=== PATIENT | male | born 1955 | race Asian ===

== ENCOUNTER 2024-03-18 14:53 | Outpatient (CLI) | payer MEDICARE, OTHER, SELFPAY ==
--- NOTE | ~2024-03-18 | XR_ITS ---
XR knee RT min 4V Ordering provider: QIAN Chapin History: . M25.561 - Pain in right knee . Comparison: None. FINDINGS: BONES: No acute fracture or dislocation. JOINT SPACES: Normal.. SOFT TISSUES: Normal. IMPRESSION: No acute osseous abnormality right knee. Reviewed, dictated and finalized at location A.
== END 2024-03-18 14:54 | disposition home or self-care (01) ==
PROVIDERS: PCP Family Medicine; Visit Provider Nurse Practitioner Family
DX: M25.561 Pain in right knee (principal)
CPT/HCPCS: 73564

== ENCOUNTER 2024-05-05 14:22 | Outpatient (CLI) | payer MEDICARE, OTHER, SELFPAY ==
--- NOTE | ~2024-05-05 | MR_ITS ---
EXAMINATION: MR knee RT wo con DATE: 05/05/2024 15:00 INDICATION: Right knee pain TECHNIQUE: Magnetic resonance imaging (MRI) of the right knee was performed without intravenous contr ast. Sequences included coronal PD-weighted FSE, coronal PD-weighted FS FSE, sagittal T2-weighted FS E, sagittal PD-weighted FS FSE and axial PD weighted fat saturated FSE. COMPARISON: None. FINDINGS: Medial compartment: Extensive complex tear involving the body and posterior horn of the medial meniscus. There is chondra l ulceration involving greater than 50% the cartilage thickness and with chondral surface regularity but without degenerative subchondral changes along the anterior central weightbearing medial femoral condyle. There is additional partial thickness cartilage loss both smooth chondral surface along the central to anterior medial tibial plateau. Lateral compartment: Lateral meniscus is normal. Articular cartilage is normal. Patellofemoral compartment: Articular cartilage is normal. Ligaments and tendons: Anterior and posterior cruciate ligaments are normal. The medial collateral ligament and fibular luiz ateral ligament complex are normal. The extensor mechanism is normal. The visualized medial and later al hamstring tendons as well as the iliotibial band are normal. Fluid: Moderate-sized knee joint effusion. No loose osteochondral bodies identified. Osseous/other: Normal marrow signal. No fracture or pathologic marrow replacing process. IMPRESSION: 1. Complex medial meniscal tear. 2. 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 3. Moderate-sized right knee joint effusion. Reviewed, dictated and finalized at location B. IMPRESSION: 1. Complex medial meniscal tear. 2. Mild osteoarthritis with extensive moderate grade chondromalacia in the medi al compartment. 3. Moderate-sized right knee joint effusion.
== END 2024-05-05 14:23 | disposition home or self-care (01) ==
LOC: GOSHIMG 14:22
PROVIDERS: PCP Family Medicine; Visit Provider Nurse Practitioner Family
DX: S83.231A Complex tear of medial meniscus, current injury, right knee, initial encounter (principal); M17.11 Unilateral primary osteoarthritis, right knee; M94.261 Chondromalacia, right knee; M25.461 Effusion, right knee; X58.XXXA Exposure to other specified factors, initial encounter
CPT/HCPCS: 73721

== ENCOUNTER 2024-08-13 14:30 | Emergency (ER) | payer MEDICARE, OTHER, SELFPAY ==
[2024-08-13] VITALS (8 sets, daily range): BP systolic 142–162; BP diastolic 75–86; PULSE 118–148; RESP 11–25; TEMP 36.4; O2SAT 92–96
--- NOTE | ~2024-08-13 | CT_ITS ---
EXAMINATION: CTA chest PE protocol DATE: 08/13/2024 18:01 INDICATION: Shortness of breath. TECHNIQUE: Computed tomography angiography (CTA) of the chest was performed with 100 mL Omnipaque-350 intravenous contrast timed to evaluate the pulmonary arteries. Coronal maximum intensity projection 3D-reconstructions were created by the technologist. Automated exposure control and iterative reconst ruction technique were employed. The dose-length product was 314.07 mGy-cm. COMPARISON: None. FINDINGS: The lungs demonstrate mild atelectasis. No pleural effusion. The heart size is normal. Ther e are coronary artery calcifications. No pericardial effusion. There is no pulmonary embolus. There i s moderate cervical spondylosis and mild thoracic spondylosis. IMPRESSION: 1. No pulmonary embolus. Reviewed, dictated and finalized at location A. OYMENT COACH IMPRESSION: 1. No pulmonary embolus.
--- NOTE | ~2024-08-13 | XR_ITS ---
XR chest 2V Ordering provider: Michele Rivas MD History: 68 years Male with . sob . Comparison: None. FINDINGS: MEDIASTINUM: The cardiac silhouette is not enlarged. Congestive franky. LUNGS: No effusions or pneumothorax. Opacification in the left lower lobe medially. Underlying emphysematous changes. OTHER: No free air under the diaphragm. IMPRESSION: Left lower lobe atelectasis versus pneumonia. Reviewed, dictated and finalized at location A. AL DIRECTOR
--- NOTE | 2024-08-13 14:36 | ECG_ITS ---
Test Date: 2024-08-13 14:41:53 Measurements Intervals [place] Rate: 142 P: 56 MA: 144 QRS: 68 QRSD: 78 T: 44 QT: 289 QTc: 444 Interpretive Statements SINUS TACHYCARDIA, POSSIBLE ATRIAL FLUTTER ABNORMAL RHYTHM ECG No previous ECG available for comparison Electronically Signed On 08-13-2024 14:51:30 MEDIUM CYCLE SALESPERSON by Carlos Caruso M.D.
[2024-08-13 16:08] LABS: Basophils Absolute Auto 0.1 K/mm3 (0.0-0.1); Basophils Percent Auto 0.9 % (0.2-1.2); Eosinophils Absolute Auto 0.1 K/mm3 (0-0.3); Hematocrit 37.7 % (42.0-52.0); Hemoglobin 12.8 g/dL (14.0-18.0); Immature Granulocyte Absolute 0.01 K/mm3 (0.00-0.031); Immature Granulocyte Percent A 0.2 % (0-0.5); Lymphocytes Absolute Auto 0.67 K/mm3 (0.9-3.2); Lymphocytes Percent Auto 12.1 % (18.3-44.2); Mean Corpuscular Hemoglobin 29.3 pg (26-34); Mean Corpuscular Volume 86.3 fl (80-100); Mean Platelet Volume 9.1 fl (7.4-10.4); Monocytes Absolute Auto 0.6 K/mm3 (0.1-0.6); Neutrophils Absolute Auto 4.1 K/mm3 (1.3-6.7); Neutrophils Percent Auto 73.8 % (45.5-73.1); Platelet Count Result 245 k/mm3 (150-375); Red Blood Count 4.37 M/mm3 (4.6-6.20); Red Cell Distribution Width 11.9 % (11.5-14.5); White Blood Count 5.6 K/mm3 (4.5-10.0)
[2024-08-13 16:20] LABS: Alanine Aminotransferase 66 U/L (6-50); Albumin Level 3.7 g/dL (3.5-5.1); Alkaline Phosphatase 90 U/L (38-126); Anion Gap 4 mmol/L (4-12); Aspartate Amino Transferase 50 U/L (17-59); Bilirubin,Total 1.2 mg/dL (0.2-1.3); Blood Urea Nitrogen 18 mg/dL (9-20); Calcium 8.8 mg/dL (8.4-10.2); Carbon Dioxide 27 mmol/L (22-30); Chloride 101 mmol/L (98-107); Estimated Glomerular Filt Rate > 60; Glucose 184 mg/dL (65-110); Potassium 3.7 mmol/L (3.4-5.0); Sodium 132 mmol/L (137-145)
[2024-08-13 16:25] LABS: INR 1.2; Prothrombin Time 15.2 Seconds (11.1-14.7)
[2024-08-13 16:30] LABS: NT Pro B Type Natriuretic Pept 79 pg/mL (19.9-100); Troponin I < 0.012 ng/mL (0.000-0.034)
[2024-08-13 16:57] LABS: D Dimer 2.26 ug/mL (<0.48)
--- NOTE | 2024-08-13 18:14 | ED.GENADULT ---
HPI - General Adult General Chief complaint: Upper Respiratory Infection Stated complaint: productive cough, fever, body aches x3 weeks Time Seen by Provider: 08/13/24 14:43 Source: patient and family Mode of arrival: ambulatory Limitations: no limitations History of Present Illness HPI narrative: 68-year-old with a history of hypertension, BPH here with the complaints of cold, cough congestion for past few days. Patient states that it beginning of the month he was diagnosed with COVID on Aug 01 which was positive and retested again on aug 05 was neg , has been having cough and wheezing on and off since then , he had fever earlier . Denies any chest pain Onset (ago): week(s) (2) Severity: moderate Exacerbating factors: none Associated symptoms: cough and fever/chills Treatments prior to arrival: none Related Data Home Medications ?Medication ?Instructions ?Recorded ?Confirmed ?Last Taken ?Type omega 9-cqs-ppg-fish oil 1,000 mg 1 cap PO DAILY 07/26/23 08/13/24 Unknown History (120 mg-180 mg) capsule (Fish Oil) Allergies Allergy/AdvReac Type Severity Reaction Status Date / Time MARE Inhibitors Allergy Intermediate Cough Verified 08/13/24 14:44 Review of Systems Review of Systems: All systems reviewed & are unremarkable except as noted in HPI and below Constitutional: Constitutional: Reports no additional constitutional complaints Eyes: Eyes: Reports no additional eye complaints ENT: Reports system reviewed and no additional complaints, except as documented Cardiovascular: Cardiovascular: Reports no additional cardiovascular complaints Respiratory: Respiratory: Reports as per HPI Gastrointestinal: Gastrointestinal: Reports no additional gastrointestinal complaints Musculoskeletal: Musculoskeletal: Reports no additional musculoskeletal complaints Neurologic: Reports system reviewed and no additional complaints, except as documented [facility] Past Medical History Medical History Abnormal tympanic membrane of both ears Bilateral tinnitus Encounter for wellness examination Right shoulder pain Screening for prostate cancer Screening, lipid Strep throat Tendonitis Tinea corporis Family History Family History Father Hypertension Family history of diabetes mellitus in first degree relative Family history of heart disease in male family member before age 55 Diabetes mellitus Mother Hypertension Cancer of lung Sibling Cerebrovascular accident Social History Social History Social History: Caffeine-coffee Smoking status: Never smoker Second hand tobacco smoke exposure: Yes Alcohol intake: never Substance use: never Substance use type: does not use Lack of Transportation: No Lack of Food: Never True Current Housing: I Have Housing Concerned About Future Housing: No Difficulty Paying Gas/Electric Bills: No Difficulty Paying for Meds: No Currently Unemployed: No Education: Master's Degree or Higher Difficulty w/ Childcare or Family Care: No Living arrangements: with family Occupation/Education: retired Additional occupation/education comments: compliance intern Gender identity (if verbalized by the patient): Male Exam Narrative: GENERAL: Well-appearing, well-nourished, and in no acute distress. HEAD: Normocephalic, atraumatic. EYES: PERRLA and EOMI. ENT: Nares clear, no rhinorrhea or epistaxis. Mucous membranes moist. NECK: Supple. CHEST: Clear to auscultation. No respiratory distress. HEART: Regular rate and rhythm. No murmur heard. Normal peripheral pulses. ABDOMEN: Soft, nontender, nondistended, normal active bowel sounds. EXTREMITIES: Normal range of motion. No edema. SKIN: Warm, dry, no rash. NEURO: No focal deficits. Alert and oriented x3. PSYCH: Normal mood and affect. Course Course Emergency Course: Patient had elevated D-dimer of 2.26, did a CT of the chest showed evidence of PE , I did inform lab work and the x-ray findings to him. He is requesting cough medicine with codeine. No indication of antibiotic at this time it appears to be post COVID sequelae Vital Signs Vital signs: Vital Signs Temperature 36.4 C 08/13/24 14:34 Pulse Rate 148 H 08/13/24 14:34 Respiratory Rate 22 H 08/13/24 14:34 Blood Pressure 151/76 H 08/13/24 14:34 Pulse Oximetry 96 08/13/24 14:34 Temperature 36.4 C 08/13/24 14:34 Pulse Rate 118 H 08/13/24 16:31 Respiratory Rate 14 08/13/24 16:31 Blood Pressure 142/77 H 08/13/24 16:31 Pulse Oximetry 92 08/13/24 16:31 Oxygen Delivery Room Air 08/13/24 14:48 Medical Decision Making Differential Diagnosis Differential Diagnosis: Bronchitis, asthma, pneumonia, PE, CHF Medical Records Medical records reviewed: Yes I reviewed the external patient's medical records. Vital Signs Vital Signs: Vital Signs Temperature 36.4 C 08/13/24 14:34 Pulse Rate 148 H 08/13/24 14:34 Respiratory Rate 22 H 08/13/24 14:34 Blood Pressure 151/76 H 08/13/24 14:34 Pulse Oximetry 96 08/13/24 14:34 Temperature 36.4 C 08/13/24 14:34 Pulse Rate 118 H 08/13/24 16:31 Respiratory Rate 14 08/13/24 16:31 Blood Pressure 142/77 H 08/13/24 16:31 Pulse Oximetry 92 08/13/24 16:31 Oxygen Delivery Room Air 08/13/24 14:48 Lab Data Lab results reviewed: Yes I reviewed the patient's lab results. 08/13/24 15:58 08/13/24 15:58 Labs: Lab Results 08/13/24 Range/Units 15:58 WBC 5.6 (4.5-10.0) K/mm3 RBC 4.37 L (4.6-6.20) M/mm3 Hgb 12.8 L (14.0-18.0) g/dL Hct 37.7 L (42.0-52.0) % MCV 86.3 (80-100) fl MCH 29.3 (26-34) pg MCHC 34.0 (32-36) g/dl RDW 11.9 (11.5-14.5) % Plt Count 245 (150-375) k/mm3 MPV 9.1 (7.4-10.4) fl Immature Gran % (Auto) 0.2 (0-0.5) % Neut % (Auto) 73.8 H (45.5-73.1) % Lymph % (Auto) 12.1 L (18.3-44.2) % Delta % (Auto) 11.0 H (2.6-8.5) % Eos % (Auto) 2.0 (0-4.4) % Baso % (Auto) 0.9 (0.2-1.2) % Lymph # (Auto) 0.67 L (0.9-3.2) K/mm3 Delta # (Auto) 0.6 (0.1-0.6) K/mm3 Eos # (Auto) 0.1 (0-0.3) K/mm3 Baso # (Auto) 0.1 (0.0-0.1) K/mm3 Abs Immat Gran (auto) 0.01 (0.00-0.031) K/mm3 Absolute Neuts (auto) 4.1 (1.3-6.7) K/mm3 Absolute Nucleated RBC 0.000 (0.0-0.012) K/mm3 Nucleated RBC % 0.0 (0.0-0.2) % PT 15.2 H (11.1-14.7) Seconds INR 1.2 D-Dimer 2.26 H (<0.48) ug/mL Sodium 132 L (137-145) mmol/L Potassium 3.7 (3.4-5.0) mmol/L Chloride 101 (98-107) mmol/L Carbon Dioxide 27 (22-30) mmol/L Anion Gap 4 (4-12) mmol/L BUN 18 (9-20) mg/dL Creatinine 1.00 (0.7-1.3) mg/dL Estim Creat Clear Calc Not Reportable Estimated GFR > 60 (59 - ) Glucose 184 H (65-110) mg/dL Calcium 8.8 (8.4-10.2) mg/dL Total Bilirubin 1.2 (0.2-1.3) mg/dL AST 50 (17-59) U/L ALT 66 H (6-50) U/L Alkaline Phosphatase 90 (38-126) U/L Troponin I < 0.012 (0.000-0.034) ng/mL NT-Pro-B Natriuret Pep 79 (19.9-100) pg/mL Total Protein 7.0 (6.3-8.2) g/dL Albumin 3.7 (3.5-5.1) g/dL Imaging Data Radiologist's impression: ITS Impressions Chest X-Ray 08/13/24 15:37 IMPRESSION: Left lower lobe atelectasis versus pneumonia. Chest CTA 08/13/24 18:09 IMPRESSION: 1. No pulmonary embolus. ECG Data EKG #1: ECG completion date: 08/13/24 ECG completion time: 14:41 EKG Interpretation: tachycardia (142), no ST changes, normal QRS and NL axis Discharge Plan Discharge Clinical Impression: Acute bronchitis Qualifiers: Bronchitis organism: unspecified organism Qualified Code(s): J20.9 - Acute bronchitis, unspecified Patient Disposition: Home, Self-Care Condition: Stable Instructions: Antibiotic Form, Acute Bronchitis (ED) Patient Language: Swedish Prescriptions: New codeine-guaifenesin 7.5-225 mg/5 mL liquid 7.5 ml PO Q4-6H PRN (Reason: cough) Qty: 473 0RF No Action omega 8-jnw-tpv-fish oil [Fish Oil] 1,000 mg (120 mg-180 mg) capsule 1 cap PO DAILY amlodipine 10 mg tablet 10 mg PO DAILY Qty: 30 11RF triamcinolone acetonide 0.5 % cream 1 applic topical BID Qty: 30 0RF albuterol sulfate 90 mcg/actuation HFA aerosol inhaler 1 inh INHALATION Q4H Qty: 8.5 0RF finasteride 1 mg tablet 1 mg PO DAILY Qty: 90 3RF azithromycin [Zithromax] 250 mg tablet See Rx Instructions PO .COMPLEX Qty: 6 0RF Rx Instructions: take 500 mg today (day 1), then 250 mg for 4 days (days 2-5) PO benzonatate 100 mg capsule 100 mg PO TID PRN (Reason: cough) Qty: 30 0RF Follow-up/Referrals: Darron Sarah MD [Primary Care Provider] - Time of Disposition: 18:28
== END 2024-08-13 19:03 | disposition home or self-care (01) ==
PROVIDERS: Emergency Provider Family Medicine; PCP Family Medicine
DX: J20.9 Acute bronchitis, unspecified (principal); R06.2 Wheezing; I10 Essential (primary) hypertension; N40.0 Benign prostatic hyperplasia without lower urinary tract symptoms; Z86.16 Personal history of COVID-19; R94.31 Abnormal electrocardiogram [ECG] [EKG]; R00.0 Tachycardia, unspecified; R91.8 Other nonspecific abnormal finding of lung field
CPT/HCPCS: 36415; 71046; 71275; 80053; 83880; 84484; 85025; 85380; 85610; 93005; 99284; Q9967

== ENCOUNTER 2025-08-21 07:37 | Emergency (ER) | payer MEDICARE, OTHER, SELFPAY ==
--- NOTE | ~2025-08-21 | US_ITS ---
EXAMINATION: US venous doppler [facility] DATE: 08/21/2025 09:04 INDICATION: Left lower limb pain TECHNIQUE: Grayscale ultrasound images without and with compression and Doppler ultrasound images of the left lower extremity veins were obtained. COMPARISON: None. FINDINGS: The visualized portions of left common femoral vein, profunda (deep) femoral vein, femoral vein, popliteal vein, peroneal veins, posterior tibial veins, gastrocnemius vein and greater saphenous vein outflow are patent. IMPRESSION: 1. No deep venous thrombosis in the left lower limb. Reviewed, dictated and finalized at location A. MODYNAMICS TEACHER
--- NOTE | ~2025-08-21 | XR_ITS ---
EXAMINATION: XR knee LT 3V DATE: 08/21/2025 09:38 INDICATION: Left knee pain TECHNIQUE: Anteroposterior, oblique and crosstable lateral views of the left knee were obtained COMPARISON: None. FINDINGS: Alignment is normal. No fracture. Joint spaces appear normal on nonweightbearing imaging. Small enthesophyte at the proximal pole of the patella. No joint effusion/layering lipohemarthrosis. Soft tissues are unremarkable. IMPRESSION: 1. No left knee joint effusion or acute osseous abnormality. Reviewed, dictated and finalized at location A. UTER SCIENCE INSTRUCTOR
[2025-08-21 07:59] VITALS: BP 134/66; PULSE 78; RESP 16; TEMP 36.5; O2SAT 97
--- NOTE | 2025-08-21 08:03 | ED.GENADULT ---
HPI - General Adult General Chief complaint: Extremity Problem,Nontraumatic Stated complaint: LLE nwb Time Seen by Provider: 08/21/25 07:54 History of Present Illness HPI narrative: Patient is a 6-year-old male who presents ER with pain to left lower extremity. [place] a little discomfort last weekend while he was walking but on 08/19/2025 he started noticing increased pain behind the left knee. Is progress the point where he cannot bear weight without significant pain today. No swelling or numbness or tingling. No known injury no trauma to the knee. No increased work with/he to be in. No improvement with Aleve. Related Data Home Medications ?Medication ?Instructions ?Recorded ?Confirmed ?Last Taken ?Type omega 8-qvv-sgj-fish oil 1,000 mg 1 cap PO DAILY 07/26/23 07/07/25 Unknown History (120 mg-180 mg) capsule (Fish Oil) amlodipine 5 mg-olmesartan 20 mg 1 tablet PO DAILY 07/07/25 07/07/25 Unknown History tablet Allergies Allergy/AdvReac Type Severity Reaction Status Date / Time MARE Inhibitors Allergy Intermediate Cough Verified 08/21/25 08:12 Review of Systems Review of Systems: All systems reviewed & are unremarkable except as noted in HPI and below Constitutional: Constitutional: Reports no additional constitutional complaints Cardiovascular: Cardiovascular: Reports no additional cardiovascular complaints Respiratory: Respiratory: Reports no additional respiratory complaints Musculoskeletal: Musculoskeletal: Reports no additional musculoskeletal complaints Neurologic: Reports system reviewed and no additional complaints, except as documented PMF Past Medical History Medical History Abnormal tympanic membrane of both ears Bilateral tinnitus Encounter for wellness examination Tinea corporis Right shoulder pain Tendonitis Screening, lipid Screening for prostate cancer Strep throat Family History Family History Father Hypertension Family history of diabetes mellitus in first degree relative Family history of heart disease in male family member before age 55 Diabetes mellitus Mother Hypertension Cancer of lung Sibling Cerebrovascular accident Social History Social History Social History: Caffeine-coffee Smoking status: Never smoker Second hand tobacco smoke exposure: Yes Alcohol intake: never Substance use: never Substance use type: does not use Lack of Transportation: No Lack of Food: Never True Current Housing: I Have Housing Concerned About Future Housing: No Difficulty Paying Gas/Electric Bills: No Difficulty Paying for Meds: No Currently Unemployed: No Education: Master's Degree or Higher Difficulty w/ Childcare or Family Care: No Living arrangements: with family Occupation/Education: retired Additional occupation/education comments: animal biologist Gender identity (if verbalized by the patient): Male Exam Narrative: GENERAL: Well-appearing, well-nourished, and in no acute distress. HEAD: Normocephalic, atraumatic. ENT: Mucous membranes moist. CHEST: Clear to auscultation. No respiratory distress. HEART: Regular rate and rhythm. Normal peripheral pulses. EXTREMITIES: Normal range of motion but with pain at the knee in the LLE. No point tenderness to the left knee. Positive apley grind test left knee. No edema. SKIN: Warm, dry, no rash. NEURO: Alert and oriented x3. PSYCH: Normal mood and affect. Course Course Emergency Course: Possible meniscus injury. Negative venous Doppler ultrasound and x-ray. Patient placed in knee immobilizer and given crutches. Recommend anti-inflammatories as well as Tylenol with hydrocodone for breakthrough pain. Follow up with Orthopedic surgery. Vital Signs Vital signs: Vital Signs Temperature 97.7 F 08/21/25 07:59 Pulse Rate 78 08/21/25 07:59 Respiratory Rate 16 08/21/25 07:59 Blood Pressure 134/66 08/21/25 07:59 Pulse Oximetry 97 08/21/25 07:59 Oxygen Delivery Room Air 08/21/25 07:59 Temperature 97.7 F 08/21/25 07:59 Pulse Rate 78 08/21/25 07:59 Respiratory Rate 16 08/21/25 07:59 Blood Pressure 134/66 08/21/25 07:59 Pulse Oximetry 97 08/21/25 07:59 Oxygen Delivery Room Air 08/21/25 07:59 MDM Differential Diagnosis Differential Diagnosis: DVT, Mendoza cyst, arthritis, meniscus injury, ligamentous injury, gout, septic joint Imaging Data Radiologist's impression: ITS Impressions Venous Doppler Study 08/21/25 09:06 IMPRESSION: 1. No deep venous thrombosis in the left lower limb. Knee X-Ray 08/21/25 09:45 IMPRESSION: 1. No left knee joint effusion or acute osseous abnormality. Discharge Plan Discharge Clinical Impression: Knee pain Patient Disposition: Home Condition: Stable Instructions: Knee Pain (ED), Knee Immobilizer (ED), Meniscus Tear (ED) Additional Instructions: It is possible that you have a torn meniscus. Wear your knee immobilizer and bear weight as tolerated with crutches. Take naproxen or ibuprofen as needed at home. Take Tylenol with hydrocodone for breakthrough pain. Follow-up with orthopedic surgery for further treatment and evaluation. Return the ER if you have chest pain and shortness of breath, your leg is cold and blue, or you have additional concerns. Patient Language: Estonian Prescriptions: New hydrocodone-acetaminophen 5-325 mg tablet 1 tablet PO Q6H PRN (Reason: pain) Qty: 10 0RF No Action omega 4-dml-hvf-fish oil [Fish Oil] 1,000 mg (120 mg-180 mg) capsule 1 cap PO DAILY triamcinolone acetonide 0.5 % cream 1 applic topical BID Qty: 30 0RF amlodipine-olmesartan 5-20 mg tablet 1 tablet PO DAILY finasteride 1 mg tablet 1 mg PO DAILY Qty: 90 3RF albuterol sulfate 90 mcg/actuation HFA aerosol inhaler 1 inh INHALATION Q4H Qty: 8.5 0RF Follow-up/Referrals: Darron Sarah MD [Primary Care Provider, Family Practice] - 1 Week Freddy Young MD [Physician, Orthopedics] - 1 Week
[2025-08-21] MEDS: HYDROcodone/acetaminophen (*CRX) 5-325 MG TABLET 1 TAB PO (08:13)
[2025-08-21 11:01] VITALS: BP 137/69; PULSE 81; RESP 18; O2SAT 97
== END 2025-08-21 11:34 | disposition home or self-care (01) ==
PROVIDERS: Emergency Provider Emergency Medicine; PCP Family Medicine
DX: M25.562 Pain in left knee (principal)
CPT/HCPCS: 73562; 93971; 99283; A9270